=== PATIENT | female | born 1940 | race Hispanic/Latino ===

== ENCOUNTER 2019-06-18 18:30 | Emergency (ER) | payer SELFPAY ==
[2019-06-18] MEDS ORDERED: ONDANSETRON 4 MG/2 ML VIAL ONE (20:00)
[2019-06-18] MEDS ORDERED: MORPHINE 2 MG/ML SYR ONE (20:00)
[2019-06-18 20:11] LABS: Basophils % 0.2 % (0-1.3); Hematocrit 46.8 % (36.0-45.0); Lymphocytes % 4.7 % (15.3-44.8); MPV 8.8 fL (7.6-11.3); RBC Red Blood Cell Count 5.19 M/uL (3.86-4.86)
[2019-06-18 20:29] LABS: Albumin 3.4 g/dL (3.4-5.0); Bilirubin Total 0.4 mg/dL (0.2-1.0); Potassium 4.1 mmol/L (3.5-5.1); Protein, Total 7.2 g/dL (6.4-8.2)
[2019-06-18 20:38] LABS: Blood Morphology Comment NOT SEEN (NOT SEEN); Platelet Estimate ADEQ
--- NOTE | 2019-06-18 21:10 | RAD REPORT ---
EXAM DESCRIPTION: RAD - Elbow Left 3 View - 06/18/2019 8:36 pm CLINICAL HISTORY: Left elbow pain status post trauma FINDINGS: No fracture or dislocation is seen.
--- NOTE | 2019-06-18 21:13 | RAD REPORT ---
EXAM DESCRIPTION: RAD - Wrist Left 3 View - 06/18/2019 8:36 pm CLINICAL HISTORY: Left wrist pain status post injury FINDINGS: Mildly displaced fracture involves the distal diametaphysis left radius No dislocation Osteoporosis
--- NOTE | 2019-06-18 21:14 | RAD REPORT ---
EXAM DESCRIPTION: RAD -Hand Left 3 View - 06/18/2019 8:36 pm CLINICAL HISTORY: Left hand pain status post injury FINDINGS: No fracture or dislocation is seen involving left hand Bones are osteoporotic
[2019-06-18] MEDS ORDERED: NA CHLORIDE 0.9% 250 ML ONE (22:16)
[2019-06-18] MEDS ORDERED: LEVETIRACETAM 500 MG/5 ML VIAL IV ONE (22:16)
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
[2019-06-19 01:01] VITALS: TEMP 97.8
[2019-06-19 01:02] VITALS: BP 144/75; O2SAT 98
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
== END 2019-06-18 23:52 | disposition short-term general hospital (02) ==
LOC: ER 18:30
PROC: 2W3DX1Z Immobilization of Left Lower Arm using Splint (ICD-10-PCS; principal; 2019-06-18)
DX: S22.41XA Multiple fractures of ribs, right side, initial encounter for closed fracture (principal); S27.9XXA Injury of unspecified intrathoracic organ, initial encounter; S22.32XA Fracture of one rib, left side, initial encounter for closed fracture; S06.6X0A Traumatic subarachnoid hemorrhage without loss of consciousness, initial encounter; S52.135A Nondisplaced fracture of neck of left radius, initial encounter for closed fracture; V43.62XA Car passenger injured in collision with other type car in traffic accident, initial encounter; Y93.89 Activity, other specified; Y92.410 Unspecified street and highway as the place of occurrence of the external cause; Z95.0 Presence of cardiac pacemaker
CPT/HCPCS: 36415; 70450; 71260; 72125; 74177; 80053; 85025; 96365; 96375; 99285; J1953; J2270; J2405; J7030; Q9967